=== PATIENT | male | born 1935 | race Caucasian/White ===

== ENCOUNTER 2016-05-08 11:56 | Emergency (ER) | payer OTHER, MEDICARE ==
[2016-05-08 12:03] VITALS: O2SAT 96
--- NOTE | 2016-05-08 12:24 | EDPHY ---
HPI/HX/ROS/PE/MDM Narrative: CHIEF COMPLAINT: Head pressure HPI: The patient is a 80 y/o male arriving with his complaining of head pressure for the last 2 days. He just finished 45 days of radiation for prostate cancer. He notes at a follow up appointment 3 days ago his BP was low in the 80s systolic and he generally feels lower energy than expected after completing the radiation treatment. Right now he complains of "pressure in a crown around the back of my head" and is here to rule out stroke symptoms. He denies neurologic history apart from concussions as a child. He denies new weakness, paresthesias, or vision changes. He is not on anticoagulants. REVIEW OF SYSTEMS: Aside from elements discussed in the HPI, a comprehensive 10-point review of systems was reviewed and is negative. 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 PMH: Prostate cancer - radiation therapy, right arm peripheral neuropathy SOCIAL HISTORY: at bedside. 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 Normally exercises every day. Two glasses red wine at dinner. PHYSICAL EXAM: General:Patient is alert, in no acute distress. ENT:Eyes are normal to inspection. ENT inspection normal. Neck: Normal inspection. Full range of motion. Respiratory:No respiratory distress. Breath sounds normal bilaterally. Cardiovascular: Regular rate and rhythm. Strong peripheral pulses. Normal cap refill. Abdomen:The abdomen is nontender to palpation. There are no peritoneal signs. There are normal bowel sounds. Back: Normal to inspection. No tenderness to palpation. Skin: Normal color. No rash. Warm and dry. Extremities: Normal appearance. Full range of motion. Neuro: Oriented x3. Normal motor function. Normal sensory function. No pronator drift. No facial asymmetry. Normal [id number]. Normal straight leg raise. ED Course: Study: CT of the Head Indication: Results: CT scan of the body parts was obtained. The results of the study are normal. The study was read by the radiologist, Dr. Kuhn. I viewed the images myself on the PACS system. MDM: This patient presents with subacute onset of posterior headache that has been present for several days. There are no neurologic deficits to suggest stroke. His CT is negative for mass or bleed. Symptoms appear relatively mild and the patient has close outpatient follow-up available to him. I think he is appropriate for outpatient management. General Time Seen by Provider: 05/08/16 12:08 Initial Vital Signs: Initial Vital Signs Temperature (C) 36.4 C 05/08/16 11:58 Heart Rate 50 L 05/08/16 11:58 Respiratory Rate 18 05/08/16 11:58 Blood Pressure 150/78 H 05/08/16 11:58 O2 Sat (%) 96 05/08/16 11:58 O2 Delivery Mode Room Air Allergies/Adverse Reactions: No Known Allergies Allergy (Unverified 05/08/16 12:03) Home Medications: Medication Instructions Recorded Ambien 10 mg 05/08/16 Aspirin [Aspirin 81mg (*)] 05/08/16 traMADol [Ultram 50 mg (*)] 50 mg PO Q4 05/08/16 Departure - Departure Disposition: Home, Routine, Self-Care Clinical Impression: Headache Condition: Good Instructions: Acute Headache (ED) Additional Instructions: Follow-up with your primary care physician within 72 hours. Return to the emergency department immediately for recurrence of headache, nausea, vomiting, numbness, weakness, neck pain, fever or other concerns. Use Tylenol and/or ibuprofen as directed. Report Scribed for: Stefan White Report Scribed by: Ingrid Zayas Date of Report: 05/08/16 Time of Report: 12:14 Physician Review and Approval Statement: Portions of this note were transcribed by an ED scribe. I personally performed the history, physical exam, and medical decision making; and confirm the accuracy of the information in the transcribed note.
[2016-05-08 13:09] VITALS: BP 140/77; PULSE 43; RESP 16; TEMP 98.4
== END 2016-05-08 13:06 | disposition home or self-care (01) ==
DX: R51 Headache (principal); Z79.82 Long term (current) use of aspirin; Z85.46 Personal history of malignant neoplasm of prostate

== ENCOUNTER → 2016-05-12 | Outpatient (CLI) | payer OTHER, MEDICARE | LOC: BHCLAF 14:30 | PROVIDERS: ATTEND Internal Medicine Cardiovascular Disease | DX: R00.1 Bradycardia, unspecified (principal); R42 Dizziness and giddiness | CPT/HCPCS: 93005-PO ==

== ENCOUNTER → 2016-05-19 | Outpatient (CLI) | payer OTHER, MEDICARE | LOC: BHFA 11:00 | PROVIDERS: ATTEND Internal Medicine Interventional Cardiology | DX: R00.1 Bradycardia, unspecified (principal) ==

== ENCOUNTER 2017-03-05 12:43 | Inpatient (IN) | payer OTHER, MEDICARE ==
--- NOTE | 2017-03-05 13:28 | EDPHY ---
H & P Stated Complaint: Right shoulder/rib pain after ski accident Time Seen by Provider: 03/05/17 13:28 HPI/ROS: CHIEF COMPLAINT: Thoracic trauma following ski accident HISTORY OF PRESENT ILLNESS: The patient presents to the ED complaining of severe chest pain, dyspnea and mild right upper quadrant pain after he was struck by a seizure today. The patient was helmeted. He did not lose consciousness. He has no complaints of headache or cervical spine pain. The patient complains of 8/10 right posterior rib pain and right scapular pain. The patient has mild pain in his right upper quadrant. The patient denies any lower extremity complaints. The patient is not anticoagulated. Past medical history is significant for bladder cancer and multiple orthopedic surgeries. The patient denies any acute numbness or weakness. He denies any bowel or bladder dysfunction. REVIEW OF SYSTEMS: A comprehensive 10 point review of systems is otherwise negative aside from elements mentioned in the history of present illness. Source: Patient - Personal History Current Tetanus/Diphtheria Vaccine: Yes Current Tetanus Diphtheria and Acellular Pertussis (TDAP): Yes Tetanus Vaccine Date: unknown - Medical/Surgical History Hx Asthma: No Hx Chronic Respiratory Disease: No Hx Diabetes: No Hx Cardiac Disease: No Hx Renal Disease: No Hx Cirrhosis: No Hx Alcoholism: No Hx HIV/AIDS: No Hx Splenectomy or Spleen Trauma: No Other PMH: medical- bladder prostate CA. surgical- L knee reconstruction, R achiles repair, left hip resurface. - Social History Smoking Status: Former smoker - Physical Exam Exam: General Appearance: Alert, no distress Head: Atraumatic Eyes: Pupils equal, round, reactive ENT, Mouth: No hemotympanum, no oral trauma Neck: Nontender, trachea midline Respiratory: Tenderness to palpation throughout the right posterior chest wall , no crepitus notice Cardiovascular: Regular rate and rhythm Abdomen: Mild tenderness to palpation in the right upper quadrant Skin: No lacerations, No abrasion Back: No midline T/L/S pain Extremities: Nontender, full range of motion Neurological: A&Ox3, normal motor function, normal sensory exam Constitutional: Initial Vital Signs Temperature (C) 36.4 C 03/05/17 12:50 Heart Rate 66 03/05/17 12:50 Respiratory Rate 18 03/05/17 12:50 Blood Pressure 111/64 03/05/17 12:50 O2 Sat (%) 90 L 03/05/17 12:50 O2 Delivery Mode Room Air Allergies/Adverse Reactions: No Known Allergies Allergy (Unverified 05/08/16 12:03) Home Medications: Medication Instructions Recorded Zolpidem Tartrate [Ambien 5MG (*)] 5 mg PO HS PRN 05/08/16 Aspirin EC [Aspirin EC 81 mg (*)] 81 mg PO DAILY 03/05/17 Herbals/Supplements -Info Only 1 ea PO DAILY 03/05/17 clonazePAM [Klonopin (*)] 0.5 mg PO HS PRN 03/05/17 Medical Decision Making - Diagnostics Imaging Results: Imaging Impressions Chest X-Ray 03/05/17 13:28 Impression: Right rib fractures. Possible right scapular fracture. Negative right shoulder. 2. Chest, PA and Lateral History: Trauma. Ski injury today. Findings: There are fractures of the right lateral third through ninth ribs, many of which are displaced. Some consolidation at the right base is consistent with either a pulmonary contusion and/or associated atelectasis. Minor costophrenic gutter blunting likely represents a small hemothorax. No pneumothorax ,mediastinal widening or clavicle fracture is identified. On the lateral view there is mild compression of T6, T7, T8 and T9, of unknown age. Heart is mildly enlarged. The pulmonary vascularity is normal. A prominent rounded density behind the heart may represent a hiatal hernia. Impression: 1. Suspect right flail chest with right basilar contusion +_ atelectasis. 2. 4 minor thoracic compressions of unknown age. Correlation with the site of symptoms is recommended. 3. Retrocardiac mass, possibly a hiatal hernia. Shoulder X-Ray 03/05/17 13:28 Impression: Right rib fractures. Possible right scapular fracture. Negative right shoulder. 2. Chest, PA and Lateral History: Trauma. Ski injury today. Findings: There are fractures of the right lateral third through ninth ribs, many of which are displaced. Some consolidation at the right base is consistent with either a pulmonary contusion and/or associated atelectasis. Minor costophrenic gutter blunting likely represents a small hemothorax. No pneumothorax ,mediastinal widening or clavicle fracture is identified. On the lateral view there is mild compression of T6, T7, T8 and T9, of unknown age. Heart is mildly enlarged. The pulmonary vascularity is normal. A prominent rounded density behind the heart may represent a hiatal hernia. Impression: 1. Suspect right flail chest with right basilar contusion +_ atelectasis. 2. 4 minor thoracic compressions of unknown age. Correlation with the site of symptoms is recommended. 3. Retrocardiac mass, possibly a hiatal hernia. CT Chest: Impression: 1. Fractures associated with the lateral to posterior lateral right third through 10th ribs as well as the costovertebral junction of the right fourth through 10th ribs. 2. Nondisplaced fractures involving the transverse processes right sixth through 10th vertebral body segments. 3. Pulmonary parenchymal contusion on the right with associated focal pulmonary laceration without contrast extravasation as detailed above. 4. Soft tissue gas over the right hemithorax adjacent to the fractures with small right-sided pneumothorax noted. Procedures: Procedure: Trauma ultrasound. Limited bedside ultrasound was performed and interpreted by myself for the indication of: Chest contusion. The exam was performed utilizing the thoracoabdominal emergency ultrasound protocol. Limited transthoracic echocardiogram: The pericardium was visualized and found to be negative for pericardial fluid. The study was negative for pericardial effusion. Limited abdominal ultrasound for blunt abdominal trauma. 1) The right upper quadrant was visualized and was found to be negative for intraperitoneal fluid. 2) The left upper quadrant was visualized and found to be negative for intraperitoneal fluid. The study was felt to be negative for free intraperitoneal fluid. Limited pelvic ultrasound was conducted for abdominal tenderness. The bladder was visualized and did not reveal an anechoic area outside of the adjacent urinary bladder. Bladder was distended with urine. The images were saved on the ultrasound database. ED Course/Re-evaluation: The patient presents the emergency department with thoracic trauma following a ski accident. He is noted to have multiple rib fractures on his chest x-ray without an obvious pneumothorax or hemothorax. The patient was placed on a classroom monitor. He had an IV established. He received IV morphine for pain control. The patient is unable to ambulate secondary to pain. Given his age and multiple fractures I do feel he should be admitted to the trauma service for observation. CT scan of the chest was obtained which demonstrates multiple rib fractures, small pneumothorax, pulmonary laceration but no evidence of an obvious scapular fracture. The patient was noted to be hemodynamically stable. The patient was re-evaluated at 3:30 p.m.. He did receive IV morphine for pain control. He is comfortable while resting in bed without movement. Consultation was by Dr. Evelyn Roca from the trauma service who will admit the patient. Differential Diagnosis: Differential diagnosis considered includes rib fracture, pneumothorax, hemothorax, intra-abdominal hemorrhage, scapular fracture Critical Care Time: Critical care time exclusive of procedures and exclusive of the PA's time was 35 minutes, performed by myself, Osman Holder MD. This elderly patient who presents to the emergency department with multiple rib fractures, pulmonary laceration and multiple thoracic process fractures. The patient will require admission to the hospital for pain control and close observation for the development of a more significant hemothorax or pneumothorax. - Data Points Laboratory Results: Laboratory Results 03/05/17 14:05 03/05/17 14:05 03/05/17 03/05/17 14:05 14:05 WBC 14.29 10^3/uL H 10^3/uL (3.80-9.50) RBC 4.37 10^6/uL L 10^6/uL (4.40-6.38) Hgb 14.9 g/dL g/dL (13.7-17.5) Hct 42.5 % % (40.0-51.0) MCV 97.3 fL fL (81.5-99.8) MCH 34.1 pg pg (27.9-34.1) MCHC 35.1 g/dL g/dL (32.4-36.7) RDW 13.6 % % (11.5-15.2) Plt Count 193 10^3/uL 10^3/uL (150-400) MPV 9.6 fL fL (8.7-11.7) Neut % (Auto) 88.4 % H % (39.3-74.2) Lymph % (Auto) 2.6 % L % (15.0-45.0) [place] % (Auto) 8.3 % % (4.5-13.0) Eos % (Auto) 0.1 % L % (0.6-7.6) Baso % (Auto) 0.2 % L % (0.3-1.7) Nucleat RBC Rel Count 0.0 % % (0.0-0.2) Absolute Neuts (auto) 12.63 10^3/uL H 10^3/uL (1.70-6.50) Absolute Lymphs (auto) 0.37 10^3/uL L 10^3/uL (1.00-3.00) Absolute Monos (auto) 1.19 10^3/uL H 10^3/uL (0.30-0.80) Absolute Eos (auto) 0.01 10^3/uL L 10^3/uL (0.03-0.40) Absolute Basos (auto) 0.03 10^3/uL 10^3/uL (0.02-0.10) Absolute Nucleated RBC 0.00 10^3/uL 10^3/uL (0-0.01) Immature Gran % 0.4 % % (0.0-1.1) Immature Gran # 0.06 10^3/uL 10^3/uL (0.00-0.10) Sodium 139 mEq/L mEq/L (134-144) Potassium 4.8 mEq/L mEq/L (3.5-5.2) Chloride 104 mEq/L mEq/L (97-110) Carbon Dioxide 25 mEq/l mEq/l (22-31) Anion Gap 10 mEq/L mEq/L (8-16) BUN 25 mg/dL H mg/dL (7-23) Creatinine 1.1 mg/dL mg/dL (0.7-1.3) Estimated GFR > 60 Glucose 138 mg/dL H mg/dL (70-100) Calcium 9.9 mg/dL mg/dL (8.5-10.4) Medications Given: Discontinued Medications Sodium Chloride (Ns) 1,000 mls @ 0 mls/hr IV EDNOW ONE; Wide Open PRN Reason: Protocol Stop: 03/05/17 14:07 Last Admin: 03/05/17 14:18 Dose: 1,000 mls Morphine Sulfate (Morphine) 4 mg IVP EDNOW ONE Stop: 03/05/17 14:10 Last Admin: 03/05/17 14:18 Dose: 4 mg Ondansetron HCl (Zofran) 4 mg IVP EDNOW ONE Stop: 03/05/17 14:20 Last Admin: 03/05/17 14:23 Dose: 4 mg Departure - Departure Disposition: [facility] Inpatient Acute Clinical Impression: Ribs, multiple fractures, Fracture of transverse process of thoracic vertebra, Pulmonary laceration, Pneumothorax Condition: Fair
[2017-03-05] MEDS ORDERED: NS 1,000 ML IV ONE (14:06)
[2017-03-05] MEDS ORDERED: ONDANSETRON 4 MG/2 ML VIAL ONE (14:13)
[2017-03-05 14:17] LABS: % IMMATURE GRANULYOCYTES 0.4 % (0.0-1.1); ABSOLUTE IMMATURE GRANULOCYTES 0.06 10^3/uL (0.00-0.10); ADD DIFF? NO; ADD MORPH? NO; ADD SCAN? NO; ATYPICAL LYMPHOCYTE FLAG 0 (0-99); FRAGMENT RBC FLAG 0 (0-99); HEMATOCRIT 42.5 % (40.0-51.0); HEMOGLOBIN 14.9 g/dL (13.7-17.5); LEFT SHIFT FLG 10 (0-99); LIPEMIA HEMOLYSIS FLAG 90 (0-99); MEAN CELL HEMOGLOBIN 34.1 pg (27.9-34.1); MEAN CELL HEMOGLOBIN CONCENTR. 35.1 g/dL (32.4-36.7); MEAN CELL VOLUME 97.3 fL (81.5-99.8); MEAN PLATELET VOLUME 9.6 fL (8.7-11.7); PLATELET CLUMPS FLAG 0 (0-99); PLATELET COUNT 193 10^3/uL (150-400); RED BLOOD CELL COUNT 4.37 10^6/uL (4.40-6.38); RED CELL DISTRIBUTION WIDTH 13.6 % (11.5-15.2)
[2017-03-05] MEDS ORDERED: ONDANSETRON 4 MG/2 ML VIAL IVP ONE (14:19)
[2017-03-05 14:30] LABS: ANION GAP 10 mEq/L (8-16); CALCIUM 9.9 mg/dL (8.5-10.4); CARBON DIOXIDE 25 mEq/l (22-31); CHLORIDE 104 mEq/L (97-110); CREATININE 1.1 mg/dL (0.7-1.3); GLOMERULAR FILTRATION RATE > 60; GLUCOSE 138 mg/dL (70-100); POTASSIUM 4.8 mEq/L (3.5-5.2); SODIUM 139 mEq/L (134-144)
[2017-03-05] MEDS ORDERED: ONDANSETRON 4 MG/2 ML VIAL IVP PRN (14:38)
[2017-03-05] MEDS ORDERED: IOPAMIDOL (ISOVUE-300) 100 ML BTL ONE (14:44)
[2017-03-05] MEDS: HYDROCODONE/APAP 5/325 TAB PO PRN ×2 (16:56→20:01)
[2017-03-05] MEDS: IBUPROFEN 600 MG TAB PO SCH (21:09)
--- NOTE | 2017-03-05 23:21 | GHP ---
[f rep st] HISTORY AND PHYSICAL DATE OF ADMISSION: 03/05/2017 CHIEF COMPLAINT: Trauma. HISTORY OF PRESENT ILLNESS: The patient is an 81-year-old man who was skiing when a snow-boarder str uck him from behind. He came to the ER with severe chest pain and dyspnea. He did not lose consciou sness. He has right posterior rib pain. PAST MEDICAL HISTORY: Prostate cancer. PAST SURGICAL HISTORY: Multiple orthopedic surgeries. SOCIAL HISTORY: He is a nonsmoker. He is extremely active. He has a PhD. REVIEW OF SYSTEMS: A 10-point review of systems negative except per HPI. ALLERGIES: No known drug allergies. MEDICATIONS: Reviewed. PHYSICAL EXAM: GCS 15. Normocephalic, atraumatic. No gross hearing deficits. Mucous membranes dianne st. Pupils equal and round. No scleral icterus. No otorrhea. No rhinorrhea. Teeth fit together n ormally. LUNGS: Clear to auscultation bilaterally. No increased work of breathing. CHEST: He is tender. There is no obvious ecchymosis. CARDIAC: Regular rate. ABDOMEN: Bowel sounds present. S oft, nontender, nondistended. MUSCULOSKELETAL: Moves all extremities well. Normal nails. NEURO: Grossly intact. PSYCH: Mood and affect normal. LAB RESULTS: I reviewed the results of his CT scan, which shows right lateral 3rd through 9th ribs w ith costovertebral, right 4th through 10th ribs, nondisplaced fractures involving the transverse proc esses, right 6th through 10th; pulmonary contusion; small pneumothorax. IMPRESSION AND PLAN: The patient is an 81-year-old man with multiple rib fractures including a flail segment. He appears quite comfortable and is able to take deep breaths. We will do pain control, p ulmonary toilet. We had a long discussion about the importance of this and that he is at a higher ch ance of developing a pneumonia. He also understands he has a small pneumothorax that we are observin g. In the event that he develops a hemo or a larger pneumothorax, he may need a chest tube. /[id number]/MODL
[2017-03-06] MEDS: HYDROCODONE/APAP 5/325 TAB PO PRN ×4 (02:36→17:21)
[2017-03-06] MEDS: IBUPROFEN 600 MG TAB PO SCH ×3 (05:55→22:19)
[2017-03-06] MEDS: ENOXAPARIN 40 MG/0.4 ML SYR SC SCH (09:26)
[2017-03-06] MEDS ORDERED: ZOLPIDEM TARTRATE 5 MG TAB PO PRN (10:57)
[2017-03-06] MEDS ORDERED: clonazePAM 0.5 MG TAB PO PRN (10:57)
--- NOTE | 2017-03-06 11:37 | SOAPPROG ---
SOAP Progress Note Assessment/Plan: Assessment:no complaints. pain adeq controlled with po meds. ambulated well in halls. no sob. cxr with small ptx. avss. comfortable. heent normal. neck nontender. heart reg. lungs clear bilat. chest wall without crepitus. abd nontender. ext nontender. mult right rib fx/small ptx - will repeat cxr later today - aware of poss need for perc tube if needed. apprec im consult. cont supportive care/pt/ambulate. Plan: 03/06/17 11:34 Objective: Vital Signs Temp Pulse Resp BP Pulse Ox 36.4 C 49 L 18 143/64 H 86 L 03/06/17 07:34 03/06/17 07:34 03/06/17 07:34 03/06/17 07:34 03/06/17 07:34 03/05/17 03/06/17 03/07/17 05:59 05:59 05:59 Intake Total 1400 Output Total 325 Balance 1075 ICD10 Worksheet Patient Problems: Problems Problem Status Onset Fracture of transverse process of thoracic vertebra Acute Pneumothorax Acute Pulmonary laceration Acute Ribs, multiple fractures Acute
--- NOTE | 2017-03-06 11:43 | GCON ---
[f rep st] CONSULTATION DATE OF CONSULTATION: 03/06/2017 REFERRING PHYSICIAN: Evelyn Roca MD CHIEF COMPLAINT: Fractured rib. REASON FOR CONSULTATION: Management of medical issues. HISTORY OF PRESENT ILLNESS: An 81-year-old male with history of prostate cancer who was skiing and struck by a snow boarder from behind. He presented to the ER with severe chest pain and dyspnea. Did not have loss of consciousness. A CT scan showed right lateral 3 through 9 ribs with costovertebral, right 4th through 6th ribs, nondisplaced fractures involving the transverse processes right 6 through 10, pulmonary contusion and small pneumothorax. Currently, his pain is well controlled on [place]. He denies shortness of breath. Has mild dizziness with standing. Does hurt with deep inspiration. He has been compliant with his incentive spirometry. REVIEW OF SYSTEMS: I completed a 10-point review of systems, negative except as noted in HPI. PAST MEDICAL HISTORY: Prostate cancer on Lupron, status post XRT. Per patient , states he gets pneumonia often. PAST SURGICAL HISTORY: Left ORIF of tibia, left TKA, left SARAH, recent hip resurfacing 6 months ago. SOCIAL HISTORY: Lives in [place], has 2 glasses of wine daily. No tobacco or drugs. ALLERGIES: None. HOME MEDICATIONS: Herbal supplement, Klonopin 0.5 mg at bedtime p.r.n., aspirin 81 daily, Ambien 5 q.h.s. p.r.n. PHYSICAL EXAM: VITAL SIGNS: Temperature 36.4, blood pressure 143/64, heart rate 40s to 50s, respirations 18, 86% on room air, 92% on 1 L. GENERAL: Well- appearing male, lying in bed, in no acute distress. HEENT: PERRLA. EOMI. Oropharynx clear. CV: Regular rate and rhythm. No murmurs, gallops, rubs. LUNGS: Diminished breath sounds at bases. Difficult for deep inspiration. Tenderness along the right flank. GI: Soft, nontender, nondistended. Positive bowel sounds. : No Black. MUSCULOSKELETAL: 5/5 upper and lower extremity strength. NEUROLOGIC: Cranial nerves 2 through 12 intact. PSYCHIATRIC: Alert , oriented x3. LABORATORY DATA: WBCs 14, hemoglobin 14, hematocrit 42, platelets 193. Sodium 139, potassium 4.8, chloride 104, carbon dioxide 25, BUN 25, creatinine 1.1, glucose 138, calcium 9.9. Chest x-ray this morning shows small right apical pneumothorax (personally reviewed by me). CT chest 03/05/2017, again fractures lateral posterior right 3rd through 12 ribs as well as costovertebral junction of the right 4th through 10th ribs. Nondisplaced fractures in the transverse process, right 6th through 10th vertebral segments. Pulmonary contusion and focal pulmonary laceration without contrast extravasation. ASSESSMENT AND PLAN: 1. Multiple right rib fractures with flail segment: The patient is stable on minimal oxygen this morning. Stressed importance of incentive spirometry to prevent infection. 2. Right pneumothorax: Still present. Continue oxygen. 3. Acute pain associated with rib fractures: Schedule Tylenol, p.r.n. [place]. Can trial a heating pad today. 4. History of prostate cancer, on Lupron. 5. Leukocytosis: likely stress reaction. Afebrile, no infectious symptoms. 6. Diet: Regular. 7. DVT prophylaxis: Lovenox. DISPOSITION: Thank you for this consultation. We will follow along. Please call if any questions. /[id number]/MODL MTDD
--- NOTE | 2017-03-06 14:45 | ASMTCMCOM ---
CM Note CM Note Notes: Pt admitted with multiple rib fx, scap fx. He was hit by a snowboarder while skiing. PT/OT have cleared him. Anticipate d/c with no CM needs but will continue to follow for any change in needs. Date Signed: 03/06/2017 02:45 PM Electronically Signed By:PALMER Osborn
--- NOTE | 2017-03-06 15:18 | SOAPPROG ---
SOAP Progress Note Assessment/Plan: Assessment: cxr with increasing ptx - percutan r tube placed. no complaints. pain adeq controlled with po meds. ambulated well in halls. no sob. cxr with small ptx. avss. comfortable. heent normal. neck nontender. heart reg. lungs clear bilat. chest wall without crepitus. abd nontender. ext nontender. mult right rib fx/small ptx - will repeat cxr later today - aware of poss need for perc tube if needed. apprec im consult. cont supportive care/pt/ambulate. Plan: 03/06/17 11:34 03/06/17 15:17 Objective: Vital Signs Temp Pulse Resp BP Pulse Ox 36.5 C 57 L 16 118/63 94 03/06/17 11:41 03/06/17 11:41 03/06/17 11:41 03/06/17 11:41 03/06/17 11:41 ICD10 Worksheet Patient Problems: Problems Problem Status Onset Fracture of transverse process of thoracic vertebra Acute Pneumothorax Acute Pulmonary laceration Acute Ribs, multiple fractures Acute
--- NOTE | 2017-03-06 15:18 | POSTOPPROG ---
Post Op Note Date of Operation: 03/06/17 Surgeon: Ozzy Lanier Anesthesia: Local (Specify) Pre-op Diagnosis: r ptx Post-op Diagnosis: same Procedure: right percutan chest tube Findings: large air duran Inf/Abcess present in the surg proc area at time of surgery?: No EBL: Minimal Drains: Other (chest tube)
[2017-03-06] MEDS ORDERED: oxyCODONE IR 15 MG TAB PO PRN (20:05)
--- NOTE | 2017-03-06 20:05 | SOAPPROG ---
SOAP Progress Note Assessment/Plan: Assessment: breathing better after chest tube placement. pain adeq controlled. change to oxycodone - hitting tylenol max. home when pain adeq controlled - can be discharged with tube when ready. cxr with increasing ptx - percutan r tube placed. no complaints. pain adeq controlled with po meds. ambulated well in halls. no sob. cxr with small ptx. avss. comfortable. heent normal. neck nontender. heart reg. lungs clear bilat. chest wall without crepitus. abd nontender. ext nontender. mult right rib fx/small ptx - will repeat cxr later today - aware of poss need for perc tube if needed. apprec im consult. cont supportive care/pt/ambulate. Plan: 03/06/17 11:34 03/06/17 15:17 03/06/17 20:04 Objective: Vital Signs Temp Pulse Resp BP Pulse Ox 36.8 C 49 L 16 128/68 H 95 03/06/17 19:18 03/06/17 19:18 03/06/17 19:18 03/06/17 19:18 03/06/17 19:18 03/05/17 03/06/17 03/07/17 05:59 05:59 05:59 Intake Total 1500 Balance 1500 ICD10 Worksheet Patient Problems: Problems Problem Status Onset Fracture of transverse process of thoracic vertebra Acute Pneumothorax Acute Pulmonary laceration Acute Ribs, multiple fractures Acute
[2017-03-06] MEDS: oxyCODONE IR 5 MG TAB PO PRN (22:19)
[2017-03-06] MEDS: DOCUSATE SODIUM 100 MG CAP PO SCH (22:20)
--- NOTE | 2017-03-07 02:25 | GOP ---
[f rep st] OPERATIVE REPORT DATE OF OPERATION: 03/06/2017 SURGEON: Ozzy Lanier MD ANESTHESIA: Local. PREOPERATIVE DIAGNOSIS: Right pneumothorax. POSTOPERATIVE DIAGNOSIS: Right pneumothorax. PROCEDURE PERFORMED: Right percutaneous tube thoracostomy. DESCRIPTION OF PROCEDURE: The right chest was anesthetized with 1% lidocaine. A small skin dav was created over the 2nd intercostal space midclavicular line. A percutaneous thoracostomy tube was passed into the thoracic cavity as noted by bubbling within the syringe. The catheter was slid to its hub and secured with a silk suture. There was good bubbling and rhythmical respiration noted within the Heimlich valve. A portable chest x-ray was ordered for later this afternoon. No immediate complications occurred. /[id number]/MODL MTDD
[2017-03-07] MEDS: oxyCODONE IR 5 MG TAB PO PRN ×3 (04:16→13:44)
[2017-03-07 05:06] LABS: HEMATOCRIT 33.6 % (40.0-51.0); HEMOGLOBIN 11.3 g/dL (13.7-17.5); MEAN CELL HEMOGLOBIN 33.1 pg (27.9-34.1); MEAN CELL HEMOGLOBIN CONCENTR. 33.6 g/dL (32.4-36.7); MEAN CELL VOLUME 98.5 fL (81.5-99.8); RED BLOOD CELL COUNT 3.41 10^6/uL (4.40-6.38); RED CELL DISTRIBUTION WIDTH 13.7 % (11.5-15.2)
[2017-03-07] MEDS: IBUPROFEN 600 MG TAB PO SCH ×2 (05:09→13:16)
[2017-03-07] MEDS: ENOXAPARIN 40 MG/0.4 ML SYR SC SCH (08:08)
[2017-03-07] MEDS: DOCUSATE SODIUM 100 MG CAP PO SCH (08:13)
--- NOTE | 2017-03-07 08:35 | HOSPPROG ---
Hospitalist Progress Note Assessment/Plan: #Right PTX: chest-tube placed yesterday. IS bedside #Acute pain: PRN [place], Advil. Check BMP #Acute hypoxic resp failure: due to PTX, splinting #Diet: regular #Disp: will cont to follow, call if questions Subjective: still c/o chest pain Objective: Vital Signs Temp Pulse Resp BP Pulse Ox 36.7 C 49 L 18 109/57 L 94 03/07/17 07:18 03/07/17 07:18 03/07/17 07:18 03/07/17 07:18 03/07/17 07:18 Laboratory Results 03/07/17 04:13 03/06/17 03/07/17 03/08/17 05:59 05:59 05:59 Intake Total 1500 Balance 1500 - Physical Exam Constitutional: no apparent distress Eyes: PERRL Ears, Nose, Mouth, Throat: moist mucous membranes Cardiovascular: regular rate and rhythym Respiratory: reduced air movement (decreased BS due to splinting), other ( pigtail catheter in place) Gastrointestinal: normoactive bowel sounds Genitourinary: no bladder fullness Skin: warm Neurologic: AAOx3, CN II-XII Intact Psychiatric: interacting appropriately ICD10 Worksheet Patient Problems: Problems Problem Status Onset Fracture of transverse process of thoracic vertebra Acute Pneumothorax Acute Pulmonary laceration Acute Ribs, multiple fractures Acute
[2017-03-07] MEDS ORDERED: ASPIRIN EC 81 MG TAB PO SCH (09:00)
[2017-03-07] MEDS ORDERED: Herbals/Supplements -Info Only PO SCH (09:00)
--- NOTE | 2017-03-07 09:37 | TRAUMAPN ---
Assessment/Plan: 81-year-old male status post skiing accident with right-sided rib fractures, pneumothorax status post chest tube placement Vitals stable, hemodynamically stable Pain well controlled for the most part on orals, did receive breakthrough this morning. Using his incentive spirometer in getting to about 2000, discussed pulmonary toilet. Pigtail chest tube in placed to Heimlich valve, no output. Lungs clear, chest x -ray this morning shows lung is up without any complication. If patient doing well later this afternoon will plan to discharge home with pigtail catheter in place. Subjective: Doing well, chest tube placed yesterday. Did use some IV narcotics this morning for breakthrough pain but otherwise feeling well Objective: Vital Signs Temp Pulse Resp BP Pulse Ox 36.7 C 49 L 18 109/57 L 94 03/07/17 07:18 03/07/17 07:18 03/07/17 07:18 03/07/17 07:18 03/07/17 07:18 Laboratory Results 03/07/17 04:13 03/06/17 03/07/17 03/08/17 05:59 05:59 05:59 Intake Total 1500 Balance 1500
[2017-03-07 12:14] VITALS: BP 111/62; PULSE 53; RESP 16; TEMP 98; O2SAT 92
--- NOTE | 2017-03-07 13:11 | ASMTCMCOM ---
CM Note CM Note Notes: Patient continues to improve. PT/OT state no needs.Possible d/c today. Patient can f/u with outpatient PT if needed. No further cm needs. CM available if needs arise. Date Signed: 03/07/2017 01:11 PM Electronically Signed By:Alexandria Amaro LCSW
== END 2017-03-07 14:47 | disposition home or self-care (01) | DRG 199 ==
LOC: F3N 15:41 → OBSVTOIN 03-06 11:43
PROVIDERS: ADMIT Surgery; ATTEND Surgery
PROC: 0B9N30Z Drainage of Right Pleura with Drainage Device, Percutaneous Approach (ICD-10-PCS; principal; 2017-03-06)
DX: S27.0XXA Traumatic pneumothorax, initial encounter (principal); J96.01 Acute respiratory failure with hypoxia; S22.41XA Multiple fractures of ribs, right side, initial encounter for closed fracture; S22.058A Other fracture of T5-T6 vertebra, initial encounter for closed fracture; S22.068A Other fracture of T7-T8 thoracic vertebra, initial encounter for closed fracture; S22.078A Other fracture of T9-T10 vertebra, initial encounter for closed fracture; W50.0XXA Accidental hit or strike by another person, initial encounter; Y93.23 Activity, snow (alpine) (downhill) skiing, snowboarding, sledding, tobogganing and snow tubing; Z87.891 Personal history of nicotine dependence; Z85.46 Personal history of malignant neoplasm of prostate; Z96.652 Presence of left artificial knee joint; Z96.642 Presence of left artificial hip joint
CPT/HCPCS: 92523-GN; 96374; 97116-GP; 97161-GP; 97165-GO; 97530-GP; 97532-GN; 97535-GO; G0378; G8978-GP-CI; G8979-GP-CI; G8980-GP-CI; G8987-GO-CI; G8988-GO-CH; G9168-GN-CJ; G9168-GN-CK; G9169-GN-CI; G9170-GN-CJ; J1650; J2405; Q9967

== ENCOUNTER → 2017-03-10 | Outpatient (CLI) | payer OTHER, MEDICARE | LOC: FIMAGING 16:29 | PROVIDERS: ATTEND Surgery | DX: J93.9 Pneumothorax, unspecified (principal) ==

== ENCOUNTER → 2017-03-10 | Outpatient (CLI) | payer OTHER, MEDICARE | LOC: FIMAGING 11:11 | PROVIDERS: ATTEND Surgery | DX: S27.0XXD Traumatic pneumothorax, subsequent encounter (principal) ==

== ENCOUNTER 2017-03-15 09:03 | Inpatient (IN) | payer OTHER, MEDICARE ==
--- NOTE | 2017-03-15 09:09 | EDPHY ---
HPI/HX/ROS/PE/MDM Narrative: CHIEF COMPLAINT: Pain control HPI: This patient is an 81 year-old male who was recently discharged from [facility] following a skiing accident 10 days ago arriving via EMS for pain management and admission. On 03/05/17, the patient was [place] and was struck from behind by a snowboarder. He sustained nine fractured ribs including a flail segment and a pneumothorax. This morning, he woke at home with uncontrollable pain, and his called trauma surgery and then activated EMS. EMS called a limited trauma plus activation due to the patient's age and injuries. Per EMS report, vitals were stable in transport, and crews established a 20 gauge IV and administered 100mcg IV Fentanyl and 5mg IV morphine. Patient's pain remained at 7/[address] Olivera, trauma surgeon, is aware of this patient and spoke with his this morning. The plan is to admit him for pain control. REVIEW OF SYSTEMS: Aside from elements discussed in the HPI, a comprehensive 10-point review of systems was reviewed and is negative. PMH: 1. History of prostate cancer 2. Left knee reconstruction 3. 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 Nonsmoker. PHYSICAL EXAM: General:Patient is alert, slurred speech, appears in pain. ENT:Eyes are normal to inspection. ENT inspection normal. Neck: Normal inspection. Full range of motion. Respiratory: Chest tube site to upper right chest, breath sounds present. No respiratory distress. Breath sounds normal bilaterally. Cardiovascular: Regular rate and rhythm. Strong peripheral pulses. Normal cap refill. Abdomen:The abdomen is nontender to palpation. There are no peritoneal signs. There are normal bowel sounds. Back: Normal to inspection. No tenderness to palpation. Skin: Old hematoma to right lower quadrant. Otherwise normal color. No rash. Warm and dry. Extremities: Normal appearance. Full range of motion. Neuro: Oriented x3. Normal motor function. Normal sensory function. ED Course: 81 year-old male who sustained nine fractured ribs including a flail segment and a pneumothorax 03/05/17 and was recently discharged from [facility] presents for pain management and admission. Exam reveals chest tube site to upper right chest, breath sounds present bilaterally. Old hematoma present across right lower abdominal quadrant. 09:02 Met EMS at bedside. Dr. Olivera, trauma surgeon, present at bedside. 09:06 Limited trauma + cancelled. Patient's injury was 10 days prior to arrival. Management planed in advance by Dr. Olivera. Plan for chest x-ray, labs including CBC, BMP, coag. 09:[address] Kaufman, trauma surgeon precision lathe operator. Dr. Kaufman accepts admission for multiple rib fractures and pain management. Chest x-ray shows right upper lower lobe pneumonitis or pulmonary contusion, no pneumothorax, stable rib fractures. - Data Points Imaging Results: Imaging Impressions Chest X-Ray 03/15/17 09:06 Impression: 1. Right upper lobe and right lower lobe pneumonitis or pulmonary contusion. 2. No pneumothorax. 3. Cardiomegaly. 4. Decreasing right pneumothorax. Imaging: I viewed and interpreted images myself Laboratory Results: Laboratory Results 03/15/17 09:20 03/15/17 09:20 03/15/17 03/15/17 03/15/17 09:20 09:20 09:20 WBC 7.11 10^3/uL 10^3/uL (3.80-9.50) RBC 3.27 10^6/uL L 10^6/uL (4.40-6.38) Hgb 11.2 g/dL L g/dL (13.7-17.5) Hct 32.7 % L % (40.0-51.0) MCV 100.0 fL H fL (81.5-99.8) MCH 34.3 pg H pg (27.9-34.1) MCHC 34.3 g/dL g/dL (32.4-36.7) RDW 13.3 % % (11.5-15.2) Plt Count 266 10^3/uL 10^3/uL (150-400) MPV 9.1 fL fL (8.7-11.7) Neut % (Auto) 64.9 % % (39.3-74.2) Lymph % (Auto) 9.7 % L % (15.0-45.0) [place] % (Auto) 16.3 % H % (4.5-13.0) Eos % (Auto) 7.9 % H % (0.6-7.6) Baso % (Auto) 0.8 % % (0.3-1.7) Nucleat RBC Rel Count 0.0 % % (0.0-0.2) Absolute Neuts (auto) 4.61 10^3/uL 10^3/uL (1.70-6.50) Absolute Lymphs (auto) 0.69 10^3/uL L 10^3/uL (1.00-3.00) Absolute Monos (auto) 1.16 10^3/uL H 10^3/uL (0.30-0.80) Absolute Eos (auto) 0.56 10^3/uL H 10^3/uL (0.03-0.40) Absolute Basos (auto) 0.06 10^3/uL 10^3/uL (0.02-0.10) Absolute Nucleated RBC 0.00 10^3/uL 10^3/uL (0-0.01) Immature Gran % 0.4 % % (0.0-1.1) Immature Gran # 0.03 10^3/uL 10^3/uL (0.00-0.10) PT 13.9 SEC SEC (12.0-15.0) INR 1.05 (0.83-1.16) APTT 26.0 SEC SEC (23.0-38.0) Sodium 143 mEq/L mEq/L (134-144) Potassium 4.5 mEq/L mEq/L (3.5-5.2) Chloride 106 mEq/L mEq/L (97-110) Carbon Dioxide 29 mEq/l mEq/l (22-31) Anion Gap 8 mEq/L mEq/L (8-16) BUN 23 mg/dL mg/dL (7-23) Creatinine 1.0 mg/dL mg/dL (0.7-1.3) Estimated GFR > 60 Glucose 98 mg/dL mg/dL (70-100) Calcium 8.6 mg/dL mg/dL (8.5-10.4) Medications Given: Aspirin Buffered (Aspirin Ec) 81 mg PO DAILY LJ Stop: 09/11/17 10:59 Last Admin: 03/15/17 11:07 Dose: 81 mg Ibuprofen (Motrin) 600 mg PO Q8HRS LJ Stop: 09/11/17 13:59 Last Admin: 03/15/17 14:11 Dose: 600 mg Lidocaine (Lidoderm 5%) 1 ea TD DAILY LJ Stop: 09/11/17 10:44 Last Admin: 03/15/17 11:07 Dose: 1 ea Oxycodone HCl (Oxycodone Ir) 10 mg PO Q4HRS PRN PRN Reason: Pain, Severe Able to Take PO Stop: 03/25/17 10:39 Last Admin: 03/15/17 11:04 Dose: 10 mg General Time Seen by Provider: 03/15/17 09:06 Initial Vital Signs: Initial Vital Signs Temperature (C) 36.5 C 03/15/17 09:10 Heart Rate 55 L 03/15/17 09:10 Respiratory Rate 18 03/15/17 09:10 Blood Pressure 122/73 H 03/15/17 09:10 O2 Sat (%) 84 L 03/15/17 09:10 O2 Delivery Mode Nasal Cannula O2 (L/minute) 4 Allergies/Adverse Reactions: No Known Allergies Allergy (Verified 03/15/17 09:10) Home Medications: Medication Instructions Recorded Zolpidem Tartrate [Ambien 5MG (*)] 5 mg PO HS PRN 05/08/16 Aspirin EC [Aspirin EC 81 mg (*)] 81 mg PO DAILY 03/05/17 Herbals/Supplements -Info Only 1 ea PO DAILY 03/05/17 clonazePAM [Klonopin (*)] 0.5 mg PO HS PRN 03/05/17 Acetaminophen [Tylenol 325mg (*)] 650 mg PO Q6 PRN 03/15/17 Ibuprofen [Motrin (*)] 600 mg PO Q8 PRN 03/15/17 Meloxicam [Mobic 7.5 mg] 7.5 mg PO BID PRN 03/15/17 oxyCODONE HCL [Oxycontin] 10 mg PO Q12 03/15/17 Departure - Departure Disposition: [facility] Acute Clinical Impression: Pain Ribs, multiple fractures Qualifiers: Encounter type: subsequent encounter Fracture type: closed Laterality: unspecified laterality Fracture healing: with routine healing Qualified Code(s) : S22.49XD - Multiple fractures of ribs, unspecified side, subsequent encounter for fracture with routine healing Condition: Fair Report Scribed for: Stefan White Report Scribed by: Verona Moy Date of Report: 03/15/17 Time of Report: 09:08 Physician Review and Approval Statement: Portions of this note were transcribed by an ED scribe. I personally performed the history, physical exam, and medical decision making; and confirm the accuracy of the information in the transcribed note.
[2017-03-15 09:27] LABS: PLATELET COUNT 266 10^3/uL (150-400)
[2017-03-15 09:35] LABS: INR 1.05 (0.83-1.16); PROTIME(PATIENT) 13.9 SEC (12.0-15.0)
[2017-03-15] MEDS ORDERED: ONDANSETRON DISINTEGRATING 4 MG TAB PO PRN (10:20)
[2017-03-15] MEDS ORDERED: clonazePAM 0.5 MG TAB PO PRN (10:46)
[2017-03-15] MEDS ORDERED: ZOLPIDEM TARTRATE 5 MG TAB PO PRN (10:46)
[2017-03-15] MEDS: oxyCODONE IR 5 MG TAB PO PRN ×3 (11:04→21:10)
[2017-03-15] MEDS: LIDOCAINE 5% 1 EA PATCH TD SCH (11:07)
[2017-03-15] MEDS: ASPIRIN EC 81 MG TAB PO SCH (11:07)
--- NOTE | 2017-03-15 11:17 | GHP ---
[f rep st] HISTORY AND PHYSICAL DATE OF ADMISSION: 03/15/2017 CHIEF COMPLAINT: Right posterior rib pain. PRESENT ILLNESS: 81-year-old male who had been admitted to the hospital last week after being struck while skiing by a snow boarder sustaining 9 posterior rib fractures on the right and pneumothorax. Maggie astudillo was treated with a small bore chest tube and discharged home on OxyContin and a variety of other me dications. He was brought in by ambulance this morning for worsening pain after being discharged estelita ral days ago. Chest x-ray in the emergency room shows the stable presence of multiple right posterior rib fractures , possible miniscule right pleural effusion but no pneumothorax. Patient's only real complaint is unc ontrollable pain. ALLERGIES: None. CURRENT MEDICATIONS: Magnesium, calcium, ASA, OxyContin, meloxicam, not really using. PAST MEDICAL HISTORY: Previous surgery: Achilles tendon rupture, radiation treatment for prostate ca ncer. SOCIAL HISTORY: Nonsmoker. Alcohol, 2 glasses of wine per day. 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 REVIEW OF SYSTEMS: Patient denies heart trouble, heart attacks, diabetes, epilepsy, rheumatic fever, really only positive for the history of prostate cancer. PHYSICAL EXAMINATION: GENERAL: Pleasant 81-year-old male. HEENT: No scleral icterus. PARMJIT. Tongue pr otrudes in the midline. No evidence of facial or head trauma, neck trauma. Nontender. MUSCULOSKELETAL : No supraclavicular nor axillary crepitus. Clavicles are intact. Upper extremities are intact. Pelvi s stable to compression. Lower extremities unremarkable. Good dorsalis pedis pulses bilaterally. LUNG S: Clear. HEART: Normal S1, S2 without murmur. Tenderness in the right posterior ribs. ABDOMEN: Soft, benign. Chest x-ray reviewed showing multiple posterior right rib fractures. ASSESSMENT: Failure to thrive at home in this 81-year-old with 9 right posterior displaced rib fract ures. PLAN: Admit. Readjust his medications. I will add some gabapentin, although at his age there will be moderate sedating effect. We will also try Lidoderm patches, and stop the OxyContin, which was not w orking that well anyway. Gave him Oxy IR, Advil, Tylenol, and Lidoderm patches. /[id number]/MODL
[2017-03-15] MEDS: IBUPROFEN 600 MG TAB PO SCH ×2 (14:11→21:09)
[2017-03-15] MEDS: MAGNESIUM HYDROXIDE 30 ML UDCUP PO PRN (18:41)
[2017-03-15] MEDS: ACETAMINOPHEN 325 MG TAB PO PRN (21:10)
[2017-03-15] MEDS: GABAPENTIN 100 MG CAP PO SCH (21:10)
[2017-03-15] MEDS: PATCH REMOVAL 1 EA PATCH TD SCH (22:22)
[2017-03-16] MEDS: oxyCODONE IR 5 MG TAB PO PRN ×4 (04:40→18:48)
[2017-03-16] MEDS: ACETAMINOPHEN 325 MG TAB PO PRN ×3 (04:41→18:48)
[2017-03-16] MEDS: IBUPROFEN 600 MG TAB PO SCH ×3 (05:43→21:29)
[2017-03-16] MEDS: LIDOCAINE 5% 1 EA PATCH TD SCH ×2 (09:23→09:32)
[2017-03-16] MEDS: GABAPENTIN 100 MG CAP PO SCH (09:24)
[2017-03-16] MEDS: ASPIRIN EC 81 MG TAB PO SCH (09:24)
[2017-03-16] MEDS: MAGNESIUM HYDROXIDE 30 ML UDCUP PO PRN (11:03)
--- NOTE | 2017-03-16 11:50 | ASMTCASEMG ---
Living Arrangements What is your living Answers: With Spouse arrangement? Who do you live with? Type Of Residence What kind of residence do Answers: House you live in? Discharge Plan Comments Coordination Status Comments Notes: Patient is an 81yo male who returns to the hospital for severe pain from 9 posterior rib fractures after being struck by a snow boarder. Patient needed his medications adjusted to control his pain more effectively. OT and rehab evals have been ordered. D/C needs TBD. CM will follow. Date Signed: 03/16/2017 11:50 AM Electronically Signed By:Alexandria Amaro LCSW
--- NOTE | 2017-03-16 19:57 | TRAUMAPN ---
Assessment/Plan: 81 yo admitted with multiple rib fractures, confusion and poor pain control Much improved Lidoderm patch Tylenol Motrin Oxy IR Cough deep breath S: Feeling better today. Wanted to review pain med schedule Objective: Vital Signs Temp Pulse Resp BP Pulse Ox 99.4 C H 56 L 16 107/56 L 94 03/16/17 16:00 03/16/17 16:00 03/16/17 16:00 03/16/17 16:00 03/16/17 16:00 03/15/17 03/16/17 03/17/17 05:59 05:59 05:59 Intake Total 250 780 Output Total 1350 650 Balance -1100 130 PT 13.9 SEC (12.0-15.0) 03/15/17 09:20 INR 1.05 (0.83-1.16) 03/15/17 09:20 Physical Exam - Physical Exam General Appearance: WD/WN, alert, no apparent distress EENT: normal ENT inspection, No scleral icterus (R), No scleral icterus (L), No hearing deficit, No rhinorrhea Neck: non-tender, full range of motion Respiratory: lungs clear, No chest non-tender (tender over right ribs) Cardiac/Chest: regular rate, rhythm, No edema Abdomen: normal bowel sounds, non-tender, soft Skin: normal color, warm/dry Extremities: normal range of motion Neuro/Psych: alert, other
[2017-03-17] MEDS: PATCH REMOVAL 1 EA PATCH TD SCH ×2 (00:48→21:02)
[2017-03-17] MEDS: IBUPROFEN 600 MG TAB PO SCH ×3 (06:01→21:01)
[2017-03-17] MEDS: oxyCODONE IR 5 MG TAB PO PRN ×2 (06:02→13:43)
[2017-03-17] MEDS: ACETAMINOPHEN 325 MG TAB PO PRN (09:06)
[2017-03-17] MEDS: LIDOCAINE 5% 1 EA PATCH TD SCH (09:09)
[2017-03-17] MEDS: ASPIRIN EC 81 MG TAB PO SCH (09:09)
--- NOTE | 2017-03-17 11:58 | SOAPPROG ---
SOAP Progress Note Assessment/Plan: Assessment: 81-year-old male with the multiple right rib fractures and mild shortness of breath/comfortable and wants to go home Breath sounds symmetrical but slight dullness in the right base/abdomen soft nontender/extremities are benign with full range of motion full pulses Afebrile, alert and oriented, and mobile Plan: Checked chest x-ray/probably home today with follow-up chest x-ray as an outpatient 03/17/17 11:56 Objective: Vital Signs Temp Pulse Resp BP Pulse Ox 36.8 C 54 L 16 114/62 97 03/17/17 07:17 03/17/17 11:10 03/17/17 11:10 03/17/17 11:10 03/17/17 11:10 03/16/17 03/17/17 03/18/17 05:59 05:59 05:59 Intake Total 250 1130 350 Output Total 1350 950 Balance -1100 180 350 PT 13.9 SEC (12.0-15.0) 03/15/17 09:20 INR 1.05 (0.83-1.16) 03/15/17 09:20 ICD10 Worksheet Patient Problems: Problems Problem Status Onset Pain Acute Ribs, multiple fractures Acute Fracture of transverse process of thoracic vertebra Acute Pneumothorax Acute Pulmonary laceration Acute
[2017-03-18] MEDS: IBUPROFEN 600 MG TAB PO SCH ×2 (06:00→12:25)
[2017-03-18 07:37] VITALS: RESP 16
[2017-03-18] MEDS: LIDOCAINE 5% 1 EA PATCH TD SCH (08:10)
[2017-03-18] MEDS: ACETAMINOPHEN 325 MG TAB PO PRN (08:10)
[2017-03-18] MEDS: ASPIRIN EC 81 MG TAB PO SCH (08:10)
[2017-03-18] MEDS: oxyCODONE IR 5 MG TAB PO PRN ×2 (08:16→12:25)
--- NOTE | 2017-03-18 08:43 | TRAUMAPN ---
Assessment/Plan: 81-year-old male status post skiing accident, readmitted for pain control with multiple right-sided rib fractures. Chest x-ray last night and this morning reassuring, no appreciable hemo or pneumothorax. Pain appears to be well controlled, the Lidoderm patches appear to be helping more so than anything. Patient also taking oxycodone as needed for pain. Patient is still on supplemental oxygen albeit minimal. This morning when I rounded, he desaturated into the mid 80s while talking, will have a home O2 evaluation prior to discharge but anticipate that he will likely need home oxygen therapy for short period of time. Anticipate discharge later today Subjective: Feels well, Still on supplemental oxygen. Objective: Vital Signs Temp Pulse Resp BP Pulse Ox 37.2 C 69 16 135/75 H 91 L 03/18/17 07:34 03/18/17 07:34 03/18/17 07:34 03/18/17 07:34 03/18/17 07:34 03/17/17 03/18/17 03/19/17 05:59 05:59 05:59 Intake Total 1130 1900 Output Total 950 300 Balance 180 1600 PT 13.9 SEC (12.0-15.0) 03/15/17 09:20 INR 1.05 (0.83-1.16) 03/15/17 09:20
--- NOTE | 2017-03-18 09:58 | PDHOMEO2F ---
Home Oxygen Face to Face Home Orders: I certify that a physician or a nurse practitioner or physician's internal medicine physician assistant has had a dxta-kg-tcez encounter with this patient on the date of this order due to the diagnosis listed, which relates to the primary reason the patient requires home oxygen. Alternative treatments have been tried, or considered, and deemed ineffective. It is anticipated that supplemental oxygen will result in improvement with treatment. Home oxygen qualifying diagnosis: rib fractures s/p trauma SpO2 on room air (%): 85 Frequency of home oxygen needed: continuous Home oxygen liters per minute: 2 Home oxygen delivery device: nasal cannula Concentrator: Yes E-tanks for mobility and back up: Yes If ordering portable O2, is the patient mobile in the home?: Yes I certify that, based on these findings, the home oxygen is medically necessary for this patient for the following length of time. Length of time home oxygen needed: 99 years
[2017-03-18 11:53] VITALS: BP 110/70; PULSE 58; TEMP 98; O2SAT 90
--- NOTE | 2017-03-18 14:13 | ASDISCHSUM ---
Discharge Information Plan Status:Home with No Needs Medically Cleared to Leave: Discharge Date:03/18/2017 01:30 PM CM D/C Disposition:Home, Routine, Self-Care ADT D/C Disposition:Home, Routine, Self-Care Projected Discharge Date:03/18/2017 01:30 PM Transportation at D/C: Discharge Delay Reason: Follow-Up Date:03/18/2017 01:30 PM Discharge Slot: Final Diagnosis: Placement Information Patient Contact Information Contact Name:TAVO Relationship: Address:[address] City:[place] Alternate Phone: [facility]/Zip Code:[place] [address] Email: Financial Information Financial Class: Primary Plan Desc:MEDICARE INPATIENT Primary Plan Number:[id number] Secondary Plan Desc:[place] SUPPLEMENT Secondary Plan Number:[id number] Assessment Information LACE LACE Acuity / Level of Care Answers: Was the patient admitted to hospital via the emergency department? Yes: Comorbidities - select Answers: Any tumor (including all that apply lymphoma or leukemia) Emergency dept visits in Answers: 2 last 6 months Score: 7 Date Signed: 03/15/2017 09:45 AM Electronically Signed By:Chanel Carrera RN [facility] Initial CM Assessment Living Arrangements What is your living Answers: With Spouse arrangement? Who do you live with? Type Of Residence What kind of residence do Answers: House you live in? Discharge Plan Comments Coordination Status Comments Notes: Patient is an 81yo male who returns to the hospital for severe pain from 9 posterior rib fractures after being struck by a snow boarder. Patient needed his medications adjusted to control his pain more effectively. OT and rehab evals have been ordered. D/C needs TBD. CM will follow. Date Signed: 03/16/2017 11:50 AM Electronically Signed By:Alexandria Amaro LCSW [facility] CM Progress Note CM Note CM Note Notes: PT/OT clear pt for home. Pt medically stable for d/c. No CM d/c needs identified. Date Signed: 03/18/2017 02:12 PM Electronically Signed By:PALMER Swift Intervention Information Intervention Type:*Incorrect Registration Date of Service:03/16/2017 10:52 AM Patient Type:Inpatient Staff Member:ANNITA Bobo Susan Hours: Discipline: Severity: Comment: Intervention Type:*IM-Signed Date of Service:03/18/2017 12:18 PM Patient Type:Inpatient Staff Member:ANNITA Mckee Margaret Hours: Discipline: Severity: Comment:
== END 2017-03-18 13:30 | disposition home or self-care (01) | DRG 948 ==
LOC: EDUNIT# → OBSVTOIN 10:27 → F3N 10:27
PROVIDERS: ADMIT Surgery; ATTEND Surgery
DX: G89.11 Acute pain due to trauma (principal); S22.41XA Multiple fractures of ribs, right side, initial encounter for closed fracture
CPT/HCPCS: 97161-GP; 97165-GO; G0390; G8978-GP-CI; G8979-GP-CI; G8980-GP-CI; G8987-GO-CI; G8988-GO-CI; G8989-GO-CI

== ENCOUNTER → 2017-03-24 | Outpatient (CLI) | payer OTHER, MEDICARE | LOC: FIMAGING 10:56 | PROVIDERS: ATTEND Surgery | DX: S22.41XA Multiple fractures of ribs, right side, initial encounter for closed fracture (principal); R91.8 Other nonspecific abnormal finding of lung field ==

== ENCOUNTER → 2017-04-23 | Outpatient (CLI) | payer OTHER, MEDICARE | LOC: FIMAGING 10:51 | PROVIDERS: ATTEND Surgery | DX: S22.41XD Multiple fractures of ribs, right side, subsequent encounter for fracture with routine healing (principal) ==

== ENCOUNTER → 2018-04-12 | Outpatient (CLI) | payer OTHER, MEDICARE | LOC: BHFA 15:30 | PROVIDERS: ATTEND Internal Medicine Interventional Cardiology | DX: R42 Dizziness and giddiness (principal) ==

== ENCOUNTER → 2018-04-14 | Outpatient (CLI) | payer OTHER, MEDICARE | LOC: BHFA 14:00 | PROVIDERS: ATTEND Internal Medicine Cardiovascular Disease | DX: R55 Syncope and collapse (principal) ==